=== PATIENT | female | born 2005 | race Caucasian/White ===

== ENCOUNTER 2025-05-30 07:16 | Emergency (ER) | payer MEDICAID, SELFPAY ==
[2025-05-30] VITALS (7 sets, daily range): BP systolic 98–107; BP diastolic 57–73; PULSE 68–80; RESP 16; TEMP 36.6; O2SAT 100; BMI 16.6
--- NOTE | 2025-05-30 07:23 | ED_ITS ---
HPI - General Adult
--- NOTE | 2025-05-30 07:23 | ED.GENADULT ---
HPI - General Adult General Chief complaint: Nausea/Vomiting/Diarrhea Stated complaint: Pounding headache, N, V 2xweeks, chillls Time Seen by Provider: 05/30/25 07:23 History of Present Illness HPI narrative: 20-year-old female history of colon polyps and uterine fibroids presents with dark green bile vomit and 15 lb weight loss in the past 2 weeks unable to hold anything down with decreased appetite. Patient was seen on Sunday at another ER and they gave fluids and Zofran she is unable to hold anything down despite taking Zofran. She feels weak fatigued and nauseous at this time with diffuse abdominal pain. She denies any rectal bleeding hematuria back pain fever chills body aches cough sore throat. Other than what is stated 14 point review of system is negative. Related Data Previous Rx's ?Medication ?Instructions ?Recorded tramadol 50 mg tablet 50 mg PO Q6H PRN pain #20 tabs 05/30/25 Allergies Allergy/AdvReac Type Severity Reaction Status Date / Time No Known Drug Allergies Allergy Verified 05/30/25 07:28 Review of Systems Review of Systems ROS Unobtainable: All systems reviewed & are unremarkable except as noted in HPI and below Exam Narrative Exam Narrative: GENERAL: [20] year old patient appears stated age. Well-developed patient, in mild distress. HEAD: Atraumatic. Normocephalic. EYES: Pupils equal round and reactive. Extraocular motions intact. No scleral icterus. No injection or drainage. ENT: Nose without bleeding, purulent drainage. Throat without erythema, tonsillar hypertrophy or exudate. Airway patent. NECK: Trachea midline. Non tender CARDIOVASCULAR: Regular rate and rhythm without murmurs, gallops, or rubs. RESPIRATORY: Clear to auscultation. Breath sounds equal bilaterally. No wheezes, rales, or rhonchi. GASTROINTESTINAL: Abdomen soft, non-tender, nondistended. EXTREMITIES: No edema or joint tenderness. BACK: Nontender without deformity or crepitance. No flank tenderness. NEURO: AOx3. SKIN: No rash or erythema of visible areas Medical Decision Making Imaging Data CT scan - abdomen/pelvis: Radiologist's Impression: [address] [address] [address] Scan Report Signed Patient: Bianca Martinez MR#: [id number] : 2005 Acct:[id number] Age/Sex: 20 / F Date of Service: 05/30/25 Loc: ED Accession Number: [id number] Procedure: CT abdomen pelvis w con Ordering Provider: Carlos Alberto Norman D.O. PROCEDURE: CT ABDOMEN PELVIS W CON INDICATIONS: abd pain n/v TECHNIQUE: After the administration of intravenous contrast, axial sections acquired from the lung bases to the pubic symphysis. Coronal and sagittal reformats were performed. For radiation dose reduction, the following was used: automated exposure control, adjustment of mA and/or kV according to patient size. COMPARISON: None. FINDINGS: Image quality: Diagnostic. Lower Chest: No significant findings. ABDOMEN: Liver: No solid mass. Gallbladder: No radiopaque gallstones or wall thickening. Biliary ducts: No biliary dilation. Pancreas: No ductal dilation. Spleen: Size is within normal limits. Adrenal Glands: No adrenal nodules. Kidneys and Ureters: No hydronephrosis. No solid mass. No complex renal cystic lesion which requires follow up. Stomach and Bowel: Normal colonic caliber, without significant wall thickening. Appendix is not well visualized. No signs of small bowel obstruction. Peritoneum: No abnormal intraperitoneal fluid. No free air. Ventral Wall: No significant ventral hernia. Abdominal Nodes: No retroperitoneal or mesenteric adenopathy by size criteria. Vessels: Aorta and inferior vena cava are normal in size. PELVIS: Pelvic Organs: Retroverted uterus. Ovaries are symmetric in size. Small peripherally enhancing right ovarian cyst. Small volume of free fluid is seen in the pelvis. A tampon is present in the vagina. Bladder: Bladder is decompressed and not well evaluated. Pelvic Nodes: No enlarged lymph nodes. Miscellaneous: No inguinal hernias are seen. Bones: No aggressive osseous abnormality. IMPRESSION: 1. Peripherally enhancing right ovarian cyst with adjacent small amount of free fluid in the pelvis may represent a recently ruptured ovarian follicle. 2. Otherwise, no acute abnormality identified in the abdomen or pelvis. Appendix is not well visualized, but no definite pericecal inflammatory changes are seen. MDM Narrative Medical decision making narrative: All lab work, vital signs, nurse triage note, medication list, previous ER visits, and all imaging studies reviewed. WBC 5.1 hemoglobin 13 point platelets 250 sodium 136 potassium 3.8 chloride 105 CO2 17 BUN 8 creatinine 0.63 glucose 99 LFTs normal paste 82 urine showed +3 ketones trace protein +2 bilirubin negative nitrite negative leukocyte esterase no WBC seen bacteria seen. CT abdomen pelvis showed peripherally enhancing right ovarian cyst with adjacent small amount of free fluid in the pelvis may represent a recently ruptured ovarian follicle. Otherwise no acute abnormality identified in the abdomen or pelvis appendix is not well visualized but definitely no pericecal inflammatory changes are seen. Discharge Plan Departure Patient Disposition: Home Clinical Impression: Ovarian cyst rupture Instructions: DI for Ovarian Cyst Activity Restrictions/Additional Instructions: Return with new or worsening symptoms. Take medication as directed. Follow up with PCP in 1-2 weeks if no improvement in symptoms. Prescriptions: New tramadol 50 mg tablet 50 mg PO Q6H PRN (Reason: pain) Qty: 20 0RF Stand Alone Forms: Patient Portal/API
--- NOTE | 2025-05-30 07:34 | DI.CT.S_ITS ---
PROCEDURE: CT ABDOMEN PELVIS W CON
[2025-05-30] MEDS: KETOROLAC 30 MG/ML VIAL 15 MG IV (07:42)
[2025-05-30] MEDS: LACTATED RINGERS 1,000 ML 1000 ML IV (07:42)
[2025-05-30] MEDS: ONDANSETRON 4 MG/2 ML INJ IV (07:43)
[2025-05-30 07:44] LABS: Add Manual Diff / Slide Review NO; Hematocrit 39.7 % (36-46); Hemoglobin 13.4 g/dL (12.0-16.0); Lymphocytes Absolute Auto 1300 /uL (1100-4500); Mean Corpuscular HGB Conc 33.7 % (30-36); Mean Corpuscular Hemoglobin 32.6 PG (26-34); Mean Corpuscular Volume 96.6 fL (80-100); Platelet Count 250 X10^3/uL (150-400)
[2025-05-30 07:50] LABS: Alanine Aminotransferase 27 IU/L (<35); Albumin 4.5 g/dL (3.5-5.0); Albumin Globulin Ratio 1.5 (1.0-2.8); Alkaline Phosphatase 55 U/L (38-126); Blood Urea Nitrogen 8 mg/dL (7-17); Calcium 8.9 mg/dL (8.4-10.2); Carbon Dioxide 17 mmol/L (22-32); Chloride 105 mmol/L (98-107); Estimated Glomerular Filt Rate > 60 mL/min (>60); Globulin 3.1 g/dL (1.7-4.1); Glucose 99 mg/dL (70-99); HEMOLYSIS 18 (0-50); Lipase 82 U/L (23-300); Potassium 3.8 mmol/L (3.4-5.1); Sodium 136 mmol/L (137-145); Total Protein 7.6 g/dL (6.3-8.2)
[2025-05-30 08:39] LABS: Influenza A - CEPHEID Flu A NEGATIVE (NEGATIVE); Influenza B - CEPHEID Flu B NEGATIVE (NEGATIVE)
[2025-05-30 08:40] LABS: COVID-19 CEPHEID 4-PLEX PCR Negative (Negative)
[2025-05-30 08:43] LABS: Appearance Urine UA CLOUDY; Bilirubin Urine UA 2+ (NEGATIVE); Color Urine UA YELLOW; Glucose Urine UA NEGATIVE (Negative); Ketones Urine UA 3+ (NEGATIVE); Leukocyte Esterase Urine UA NEGATIVE (NEGATIVE); Nitrite Urine UA NEGATIVE (Negative); Occult Blood Urine UA NEGATIVE (Negative); Protein Urine UA TRACE (Negative); Specific Gravity Urine UA >=1.030 (1.000-1.035); Urobilinogen Urine UA 1.0 E.U./dL (0.2); pH Urine UA 6.0 (4.5-8.0)
[2025-05-30 08:46] LABS: Culture Indicated Urine Cult Not Indicated; Ictotest Urine Negative (Negative)
[2025-05-30 08:47] LABS: UR Morphine/Opiate cutoff 300 Negative (Negative); Ur Specific Gravity Normal (Normal); Urine MDMA Negative (Negative); Urine Methamphetamines Negative (Negative); Urine Tetrahydrocannabinol Negative (Negative); Urine Tricyclic Antidepressant Negative (Negative)
== END 2025-05-30 09:09 | disposition home or self-care (01) ==
PROVIDERS: Emergency Provider Family Medicine
DX: N83.201 Unspecified ovarian cyst, right side (principal); R10.9 Unspecified abdominal pain
CPT/HCPCS: 36415; 74177; 80053; 80305; 81001; 81025; 83690; 85025; 87637; 96361; 96374; 96375; 99284; J1885; J2405; J7120; Q9967

== ENCOUNTER 2025-06-24 21:31 | Emergency (ER) | payer OTHER, SELFPAY ==
[2025-06-24 21:40] VITALS: BP 103/57; PULSE 70; O2SAT 99
[2025-06-24 21:42] VITALS: BP 103/57; PULSE 70; RESP 16; TEMP 36.2; O2SAT 99; BMI 17.5
--- NOTE | 2025-06-24 22:17 | ED.NAVMDI ---
HPI - Nausea/Vomiting/Diarrhea General Chief complaint: Nausea/Vomiting/Diarrhea Stated complaint: vomiting (dark brown), blood in stool Time Seen by Provider: 06/24/25 21:39 Source: patient Mode of arrival: Ambulatory History of Present Illness HPI Narrative: 20-year-old female history of colon polyps and uterine fibroids presents abdominal pain nausea, vomiting, that was blood-tinged and also noticed stools were darker than usual and abdominal cramping. Other than what is stated 14 point review of system is negative. Related Data Previous Rx's ?Medication ?Instructions ?Recorded tramadol 50 mg tablet 50 mg PO Q6H PRN pain #20 tabs 05/30/25 ondansetron HCl 4 mg tablet 4 mg PO Q8H PRN nausea and 06/25/25 vomiting #30 tabs Allergies Allergy/AdvReac Type Severity Reaction Status Date / Time No Known Drug Allergies Allergy Verified 05/30/25 07:28 Review of Systems Review of Systems ROS Unobtainable: All systems reviewed & are unremarkable except as noted in HPI and below Exam Narrative Exam Narrative: GENERAL: [20] year old patient appears stated age. Well-developed patient, in mild distress. HEAD: Atraumatic. Normocephalic. EYES: Pupils equal round and reactive. Extraocular motions intact. No scleral icterus. No injection or drainage. NECK: Trachea midline. Non tender CARDIOVASCULAR: Regular rate and rhythm without murmurs, gallops, or rubs. RESPIRATORY: Clear to auscultation. Breath sounds equal bilaterally. No wheezes, rales, or rhonchi. GASTROINTESTINAL: Abdomen soft, non-tender, nondistended. EXTREMITIES: No edema or joint tenderness. BACK: Nontender without deformity or crepitance. No flank tenderness. NEURO: AOx3. SKIN: No rash or erythema of visible areas Initial Vital Signs Initial Vital Signs: Vital Signs Temperature 97.1 F L 06/24/25 21:42 Pulse Rate 70 06/24/25 21:42 Respiratory Rate 16 06/24/25 21:42 Blood Pressure 103/57 L 06/24/25 21:42 Pulse Oximetry 99 06/24/25 21:42 Oxygen Delivery Method Room Air 06/24/25 21:42 Course Orders Ordered: ED Orders 06/24/25 22:12 CBC Auto Diff [Complete Blood Count AUTO DIFF] Stat CMP [Comprehensive Metabolic Panel] Stat Lipase Stat 06/24/25 22:23 CT abdomen pelvis w con Stat Lactated Ringer's (Lactated Ringers) 1,000 mls @ 1,000 mls/hr IV BOLUS ONE Stop: 06/24/25 22:45 Discontinued Medications Lactated Ringer's (Lactated Ringers) 500 mls @ 1,000 mls/hr IV BOLUS ONE Stop: 06/24/25 22:15 Last Admin: 06/24/25 21:54 Dose: Not Given Documented By: WILMA Ondansetron HCl (Ondansetron 4 Mg/2 Ml Inj) 4 mg IV NOW ONE Stop: 06/24/25 21:54 Vital Signs Vital signs: Vital Signs - 8 hr 06/24/25 21:42 Temperature 97.1 F L Pulse Rate 70 Respiratory Rate 16 Blood Pressure 103/57 L Pulse Oximetry 99 Oxygen Delivery Method Room Air MDM - Nausea/Vomiting/Diarrhea Lab Data 06/24/25 22:12 06/24/25 22:12 Imaging Data US - WARP BLEACHING VAT TENDER: Radiologist's Impression: [place] [address] Ultrasound Report Signed Patient: Bianca Martinez MR#: [id number] : 2005 Acct:[id number] Age/Sex: 20 / F Date of Service: 06/24/25 Loc: ED Accession Number: [id number] Procedure: US pelvic complete Ordering Provider: Carlos Alberto Norman D.O. PROCEDURE: US PELVIC COMPLETE INDICATIONS: LEFT OVARIAN CYST ON CT TECHNIQUE: Real-time scanning was performed of the pelvic organs, with image documentation. Additional endovaginal scanning was declined by the patient. COMPARISON: same day CT abdomen pelvis. FINDINGS: Uterus: Uterus is retroverted and normal in size at 8.9 x 5.4 x 8.0 cm. The myometrium is homogeneous. The endometrium measures 20 mm combined thickness. Ovaries: The right ovary measures 2.4 x 2.1 x 3.3 cm, with a calculated ovarian volume of 8.7 cc. The left ovary measures 2.8 x 3.4 x 2.6 cm, with a calculated ovarian volume of 12.8 cc. The ovaries have a normal sonographic appearance. A corpus luteum is seen in the left ovary Less than 12 follicles can be seen in each ovary. No adnexal masses are seen. Other: Small volume pelvic free fluid, within physiologic limits. IMPRESSION: No significant sonographic abnormality. An unremarkable corpus luteum is visualized in the left ovary. Small volume pelvic free-fluid appears within physiologic limits. We strive to produce accurate, complete, and clear reports of imaging services. To assist us in improving patient care, this report was composed using standard report templates and voice recognition software. Therefore, it may contain abnormal punctuation, insertions and/or omissions. Occasional wrong-word or sound-alike substitutions may occur. Though we review the report and make efforts to correct it, we do recommend that the report be read carefully in proper context to recognize any text inaccuracies. Dictated by: Joyce Aguilar M.D. on 06/25/2025 at 0:57 Approved by: Joyce Aguilar M.D. on 06/25/2025 at 1:01 MDM Narrative Medical decision making narrative: All lab work, vital signs, nurse triage note, medication list, previous ER visits, and all imaging studies reviewed. CT abdomen and pelvis shows small volume hyperdense pelvic free fluid. Left adnexal corpus luteum with discontinuous wall suggestive of rupture. Recommend dedicated evaluation with pelvic ultrasound. WBC 7.6 huggins 13.8 platelets 270 sodium 141 has not 3.9 chloride 106 CO2 24 BUN 9 creatinine 0.6 glucose 93 LFTs normal normal lipase 62. Pelvic ultrasound showed no significant sonographic abnormality. And unremarkable corpus luteum is visualized in the left ovary. Small volume pelvic free fluid appears within physiological limits. Differential diagnosis constipation diverticulitis pancreatitis cholecystitis appendicitis kidney stone kidney infection ovarian cyst rupture. Patient given fluids Toradol Benadryl droperidol here. DC home on Zofran rx Discharge Plan Departure Patient Disposition: Home Clinical Impression: Abdominal pain, Nausea & vomiting Instructions: DI for Abdominal Pain-Adult Activity Restrictions/Additional Instructions: Return with new or worsening. Keep hydrated. Clear liquid diet advance as tolerated. Take medicines as directed. Follow up PCP next week if no improvement in symptoms. Prescriptions: New ondansetron HCl 4 mg tablet 4 mg PO Q8H PRN (Reason: nausea and vomiting) Qty: 30 0RF No Action tramadol 50 mg tablet 50 mg PO Q6H PRN (Reason: pain) Qty: 20 0RF Stand Alone Forms: Patient Portal/API
--- NOTE | 2025-06-24 22:23 | DI.CT.S_ITS ---
PROCEDURE: CT ABDOMEN PELVIS W CON INDICATIONS: abd pain hx of ovarian cyst rupture TECHNIQUE: After the administration of intravenous contrast, axial sections acquired from the lung bases to the pubic symphysis. Coronal and sagittal reformats were performed. For radiation dose reduction, the following was used: automated exposure control, adjustment of mA and/or kV according to patient size. COMPARISON: [facility], CT, CT ABDOMEN PELVIS W CON, 05/30/2025, 8:00. FINDINGS: Image quality: Diagnostic. Lower Chest: No significant findings. ABDOMEN: Liver: No solid mass. Gallbladder: No radiopaque gallstones or wall thickening. Biliary ducts: No biliary dilation. Pancreas: No ductal dilation. Spleen: Size is within normal limits. Adrenal Glands: No adrenal nodules. Kidneys and Ureters: No hydronephrosis. No solid mass. No complex renal cystic lesion which requires follow up. Stomach and Bowel: Normal colonic caliber, without significant wall thickening. Partially limited evaluation of the distal sigmoid and rectum secondary to adjacent hyperdense fluid within the pelvis. Peritoneum: Small volume pelvic fluid measuring above simple fluid attenuation. Fat stranding/inflammatory changes present within the pelvis. No free air. Ventral Wall: No significant ventral hernia. Abdominal Nodes: No retroperitoneal or mesenteric adenopathy by size criteria. Vessels: Aorta and inferior vena cava are normal in size. PELVIS: Pelvic Organs: Small volume fluid in the pelvis, measuring greater than simple fluid attenuation. Left adnexal corpus luteum with discontinuous holliday, suggestive of rupture. Bladder: No bladder wall thickening, accounting for underdistention. Pelvic Nodes: No enlarged lymph nodes. Miscellaneous: No inguinal hernias are seen. Bones: No aggressive osseous abnormality. IMPRESSION: Small volume (above physiologic) hyperdense pelvic free fluid. Left adnexal corpus luteum with discontinuous wall suggestive of rupture. Recommend dedicated evaluation with pelvic ultrasound. Otherwise, no significant acute abnormality is visualized in the abdomen or pelvis. Dictated by: Joyce Aguilar M.D. on 06/24/2025 at 23:04 Approved by: Joyce Aguilar M.D. on 06/24/2025 at 23:10
[2025-06-24 22:26] LABS: Add Manual Diff / Slide Review NO; Hematocrit 41.0 % (36-46); Hemoglobin 13.8 g/dL (12.0-16.0); Lymphocytes Absolute Auto 1100 /uL (1100-4500); Mean Corpuscular HGB Conc 33.8 % (30-36); Mean Corpuscular Hemoglobin 32.9 PG (26-34); Mean Corpuscular Volume 97.6 fL (80-100); Platelet Count 273 X10^3/uL (150-400)
[2025-06-24 22:38] LABS: Alanine Aminotransferase 21 IU/L (<35); Albumin 4.7 g/dL (3.5-5.0); Albumin Globulin Ratio 1.5 (1.0-2.8); Alkaline Phosphatase 67 U/L (38-126); Blood Urea Nitrogen 9 mg/dL (7-17); Calcium 9.4 mg/dL (8.4-10.2); Carbon Dioxide 24 mmol/L (22-32); Chloride 106 mmol/L (98-107); Estimated Glomerular Filt Rate > 60 mL/min (>60); Globulin 3.2 g/dL (1.7-4.1); Glucose 93 mg/dL (70-99); HEMOLYSIS 19 (0-50); Lipase 62 U/L (23-300); Potassium 3.9 mmol/L (3.4-5.1); Sodium 141 mmol/L (137-145); Total Protein 7.9 g/dL (6.3-8.2)
[2025-06-24] MEDS: KETOROLAC 30 MG/ML VIAL 15 MG IV (22:42)
[2025-06-24] MEDS: diphenhydrAMINE 50 MG/ML VIAL IV (22:42)
[2025-06-24] MEDS: ONDANSETRON 4 MG/2 ML INJ IV (22:42)
[2025-06-24] MEDS: LACTATED RINGERS 1,000 ML 1000 ML IV ×2 (22:43→23:58)
[2025-06-24] MEDS: droPERidol 2.5 MG/ML VIAL IV (22:43)
[2025-06-24 22:49] VITALS: O2SAT 86
[2025-06-24 22:54] VITALS: BP 97/59; PULSE 91; O2SAT 100
[2025-06-24 23:00] VITALS: BP 108/72; PULSE 94; O2SAT 100
[2025-06-24 23:30] VITALS: BP 86/56; PULSE 84; O2SAT 99
--- NOTE | 2025-06-24 23:30 | DI.US.S_ITS ---
PROCEDURE: US PELVIC COMPLETE INDICATIONS: LEFT OVARIAN CYST ON CT TECHNIQUE: Real-time scanning was performed of the pelvic organs, with image documentation. Additional endovaginal scanning was declined by the patient. COMPARISON: same day CT abdomen pelvis. FINDINGS: Uterus: Uterus is retroverted and normal in size at 8.9 x 5.4 x 8.0 cm. The myometrium is homogeneous. The endometrium measures 20 mm combined thickness. Ovaries: The right ovary measures 2.4 x 2.1 x 3.3 cm, with a calculated ovarian volume of 8.7 cc. The left ovary measures 2.8 x 3.4 x 2.6 cm, with a calculated ovarian volume of 12.8 cc. The ovaries have a normal sonographic appearance. A corpus luteum is seen in the left ovary Less than 12 follicles can be seen in each ovary. No adnexal masses are seen. Other: Small volume pelvic free fluid, within physiologic limits. IMPRESSION: No significant sonographic abnormality. An unremarkable corpus luteum is visualized in the left ovary. Small volume pelvic free-fluid appears within physiologic limits. We strive to produce accurate, complete, and clear reports of imaging services. To assist us in improving patient care, this report was composed using standard report templates and voice recognition software. Therefore, it may contain abnormal punctuation, insertions and/or omissions. Occasional wrong-word or sound-alike substitutions may occur. Though we review the report and make efforts to correct it, we do recommend that the report be read carefully in proper context to recognize any text inaccuracies. Dictated by: Joyce Aguilar M.D. on 06/25/2025 at 0:57 Approved by: Joyce Aguilar M.D. on 06/25/2025 at 1:01
[2025-06-25] VITALS: BP 91/59; PULSE 98; O2SAT 99
[2025-06-25 00:30] VITALS: BP 101/65; PULSE 94; O2SAT 100
[2025-06-25 01:00] VITALS: BP 98/69; PULSE 87; O2SAT 100
[2025-06-25 01:18] VITALS: BP 89/55; PULSE 96; O2SAT 99
[2025-06-25] MEDS: ONDANSETRON 4 MG ODT PREPACK 1 BOTTLE MISC (01:19)
[2025-06-25 01:29] VITALS: BP 104/57; PULSE 76; RESP 18; TEMP 36.9; O2SAT 100
== END 2025-06-25 01:32 | disposition home or self-care (01) ==
PROVIDERS: Emergency Provider Family Medicine
DX: R10.9 Unspecified abdominal pain (principal); R11.2 Nausea with vomiting, unspecified
CPT/HCPCS: 74177; 76856; 80053; 81003; 81025; 83690; 85025; 93975; 96361; 96374; 96375; 99283; 99284; J1200; J1790; J1885; J2405; J7120; Q9967